=== PATIENT | female | born 1995 | race Two or more races ===

== ENCOUNTER 2016-09-10 14:03 | Emergency (ER) | payer MEDICAID, OTHER ==
[~2016-09-10] VITALS: Ht 162.6 cm; Wt 68.5 kg
[2016-09-10 14:32] VITALS: BP 122/71
[2016-09-10] MEDS ORDERED: IBUPROFEN 800 MG TAB PO ONE (17:00)
== END 2016-09-10 19:06 | disposition home or self-care (01) ==
LOC: ER 14:08
DX: H66.91 Otitis media, unspecified, right ear (principal)

== ENCOUNTER 2017-01-11 07:57 | Emergency (ER) | payer MEDICAID ==
[~2017-01-11] VITALS: Ht 162.6 cm; Wt 68.0 kg
[2017-01-11 08:02] VITALS: BP 121/74
== END 2017-01-11 09:33 | disposition home or self-care (01) ==
LOC: ER 07:57
DX: S80.862A Insect bite (nonvenomous), left lower leg, initial encounter (principal); W57.XXXA Bitten or stung by nonvenomous insect and other nonvenomous arthropods, initial encounter; Y93.89 Activity, other specified; Y92.89 Other specified places as the place of occurrence of the external cause; Y99.8 Other external cause status

== ENCOUNTER 2017-02-11 13:17 | Emergency (ER) | payer MEDICAID ==
[~2017-02-11] VITALS: Ht 162.6 cm; Wt 68.0 kg
[2017-02-11 13:25] VITALS: BP 120/80
[2017-02-11] MEDS ORDERED: KETOROLAC TROMETH 60MG/2ML VIAL IM ONE (15:15)
== END 2017-02-11 15:52 | disposition home or self-care (01) ==
LOC: ER 13:17
DX: S39.012A Strain of muscle, fascia and tendon of lower back, initial encounter (principal); X50.0XXA Overexertion from strenuous movement or load, initial encounter; Y93.89 Activity, other specified; Y92.89 Other specified places as the place of occurrence of the external cause; Y99.8 Other external cause status
CPT/HCPCS: 96372; 99283; J1885

== ENCOUNTER 2017-02-18 13:12 | Emergency (ER) | payer MEDICAID ==
[~2017-02-18] VITALS: Ht 162.6 cm; Wt 68.0 kg
[2017-02-18 13:38] VITALS: BP 112/69
== END 2017-02-18 22:31 | disposition left against medical advice (07) ==
LOC: ER 13:12
DX: K92.1 Melena (principal); Z53.21 Procedure and treatment not carried out due to patient leaving prior to being seen by health care provider

== ENCOUNTER 2019-12-04 11:36 | Emergency (ER) | payer MEDICAID, OTHER ==
[~2019-12-04] VITALS: Ht 162.6 cm; Wt 74.8 kg
[2019-12-04 11:52] VITALS: BP 117/86
[2019-12-04] MEDS ORDERED: hydrOXYzine 25 MG TAB or CAP PO ONE (13:00)
[2019-12-04] MEDS ORDERED: IBUPROFEN 600 MG TAB PO ONE (13:00)
[2019-12-04 14:41] LABS: Basophils # (auto) 0.1 10 ^3/uL (0-0.2); Basophils % (auto) 0.5 % (0.0-2.0); Eosinophils # (auto) 0.1 10 ^3/uL (0-0.8); Eosinophils % (auto) 1.3 % (0.0-7.0); Hematocrit 44.7 % (36.0-46.0); Hemoglobin 15.1 g/dL (12.2-16.2); Lymphocytes # (auto) 1.9 10 ^3/uL (0.4-5.4); Mean Corpuscular Hgb Conc. 33.8 g/dL (32.0-36.0); Mean Corpuscular Volume 91.9 fL (80.0-100.0); Monocytes # (auto) 0.5 10 ^3/uL (0-1.3); Monocytes % (auto) 5.2 % (0.0-12.0); Neutrophils # (auto) 7.4 10 ^3/uL (1.6-8.6); Nucleated Red Blood Cells % 0.1 %; Platelet Count (auto) 207 10^3/uL (140-450); Red Blood Cells 4.87 10^6/uL (4.0-5.20); Red Cell Distribution Width 13.4 % (11.8-14.3); White Blood Cell 10.1 10^3/uL (4.4-10.8)
[2019-12-04 14:58] LABS: BUN/Creatinine Ratio 13.7; Calcium 9.1 mg/dL (8.5-10.1); Potassium 3.7 mmol/L (3.5-5.1)
== END 2019-12-04 15:55 | disposition home or self-care (01) ==
LOC: ER 11:36 → EDUNIT# 11:36 → ER 15:55
DX: F41.9 Anxiety disorder, unspecified (principal); M25.562 Pain in left knee; M25.561 Pain in right knee
CPT/HCPCS: 36415; 71046; 80048; 81002; 84484; 85025; 93005

== ENCOUNTER 2022-10-03 15:07 | Emergency (ER) | payer MEDICAID ==
[~2022-10-03] VITALS: Ht 162.6 cm; Wt 75.0 kg
[2022-10-03 15:30] VITALS: BP 106/78
[2022-10-03] MEDS ORDERED: TETANUS-DIPTH-ACEL PERTUSSIS 0.5ML SYR Tdap IM ONE (16:00)
== END 2022-10-03 16:15 | disposition home or self-care (01) ==
LOC: ER 15:07
DX: S91.331A Puncture wound without foreign body, right foot, initial encounter (principal); W22.8XXA Striking against or struck by other objects, initial encounter; Y93.01 Activity, walking, marching and hiking; Y92.89 Other specified places as the place of occurrence of the external cause; Y99.8 Other external cause status
CPT/HCPCS: 90471; 90715

== ENCOUNTER → 2023-01-01 | Emergency (ER) | payer MEDICAID ==
[~2023-01-01] VITALS: Ht 162.6 cm; Wt 73.3 kg
[2023-01-01 15:18] LABS: Basophils # (auto) 0.1 10 ^3/uL (0-0.2); Basophils % (auto) 0.8 % (0.0-2.0); Eosinophils # (auto) 0.3 10 ^3/uL (0-0.8); Eosinophils % (auto) 4.1 % (0.0-7.0); Hematocrit 41.3 % (36.0-46.0); Hemoglobin 13.6 g/dL (12.2-16.2); Lymphocytes # (auto) 3.5 10 ^3/uL (0.4-5.4); Lymphocytes % (auto) 43.8 % (10.0-50.0); Mean Corpuscular Hemoglobin 29.1 pg (28.0-32.0); Mean Corpuscular Hgb Conc. 32.9 g/dL (32.0-36.0); Mean Corpuscular Volume 88.2 fL (80.0-100.0); Monocytes # (auto) 0.3 10 ^3/uL (0-1.3); Monocytes % (auto) 3.4 % (0.0-12.0); Neutrophils # (auto) 3.8 10 ^3/uL (1.6-8.6); Neutrophils % (auto) 47.9 % (37.0-80.0); Nucleated Red Blood Cells % 0.1 %; Red Blood Cells 4.68 10^6/uL (4.0-5.20); Red Cell Distribution Width 14.2 % (11.8-14.3)
[2023-01-01 15:28] LABS: Urine Bacteria NONE SEEN /hpf (None Seen); Urine Blood TRACE /uL (Negative); Urine Clarity Clear (Clear); Urine Color Yellow (Yellow); Urine Mucus FEW (None Seen); Urine Protein, UAD Negative (Negative); Urine Specific Gravity 1.019 (1.001-1.035); Urine Urobilinogen Normal (Negative); Urine WBC 1 /hpf (0 - 5); Urine pH 5.5 (5.0-8.0)
[2023-01-01 15:54] LABS: Albumin 3.6 g/dL (3.4-5.0); Calcium 8.8 mg/dL (8.5-10.1); Potassium 3.7 mmol/L (3.5-5.1)
[2023-01-01 15:57] LABS: BUN/Creatinine Ratio 14.3 (10.0-20.0); Bilirubin, Total 0.2 mg/dL (0.2-1.0); Total Protein 7.6 g/dL (6.4-8.2)
[2023-01-01 16:56] VITALS: BP 107/70; PULSE 71; RESP 16; TEMP 98.2; O2SAT 100
== END | disposition home or self-care (01) ==
LOC: ER 14:35
DX: N93.9 Abnormal uterine and vaginal bleeding, unspecified (principal); R10.2 Pelvic and perineal pain
CPT/HCPCS: 36415; 76856; 80053; 81001; 81025; 84702; 85025; 86850; 86900; 86901

== ENCOUNTER 2023-11-13 19:53 | Emergency (ER) | payer MEDICAID ==
[~2023-11-13] VITALS: Ht 162.6 cm; Wt 72.0 kg
[2023-11-13 19:53] VITALS: BP 103/70; PULSE 68; RESP 16; O2SAT 100
[2023-11-13] MEDS ORDERED: CEPH500C PO (21:11)
[2023-11-13] MEDS ORDERED: MUPI2OIN2 EX (21:11)
[2023-11-13] MEDS: diphenhdrAMINE HCL 25 MG CAP PO ONE (21:33)
[2023-11-13] MEDS: DexAMETHasone SOD PHOS 10MG/1ML VIAL INJ IM ONE (21:33)
== END 2023-11-13 21:56 | disposition home or self-care (01) ==
LOC: ER 19:53
DX: S80.861A Insect bite (nonvenomous), right lower leg, initial encounter (principal); W57.XXXA Bitten or stung by nonvenomous insect and other nonvenomous arthropods, initial encounter; Y93.89 Activity, other specified; Y92.89 Other specified places as the place of occurrence of the external cause; Y99.8 Other external cause status
CPT/HCPCS: 96372; 99283; J1100